=== PATIENT | female | born 1970 | race Caucasian/White ===

== ENCOUNTER 2020-07-29 15:01 | Emergency (ER) | payer MEDICAID ==
[~2020-07-29] VITALS: Ht 167.6 cm; Wt 70.3 kg
[2020-07-29 15:09] VITALS: BP_SYST 144
--- NOTE | 2020-07-29 15:15 | NUR ---
Patient to ER bed 7 to gown for evaluation. Side rails up. Report given to Nikki AGRAWAL.
--- NOTE | 2020-07-29 15:17 | NUR ---
Patient arrived in the ED c/o right ankle pain after slipping on a wet floor 4 days ago. Patient denied any chest pain or shortness of breath. Denied any fevers, chills, nausea, or vomiting. Patient is alert and oriented x4, respirations even and unlabored, speaking in full sentences, ambulating with a steady gait. VSS, pain level 4/10. Informed of approximate wait time. Instructed to notify ED staff for any changes in condition or worsening of symptoms. Patient verbalized understanding.
--- NOTE | 2020-07-29 15:20 | NUR ---
SHANITA Edwards DEBONER at bedside examining patient.
[2020-07-29] MEDS ORDERED: IBUPROFEN 600 MG TABLET PO ONE (15:30)
--- NOTE | 2020-07-29 15:38 | NUR ---
Patient medicated with 600 mg ibuprofen PO for 4/10 R ankle pain. Patient tolerated well. Will continue to monitor.
--- NOTE | 2020-07-29 15:44 | NUR ---
X-ray tech at bedside as ordered by Dr. Ingram. Patient tolerated the procedure well.
[2020-07-29 16:14] VITALS: BP_SYST 144
--- NOTE | 2020-07-29 16:15 | NUR ---
Patient given written and verbal discharge instructions and verbalizes understanding. ER MD discussed with patient the results and treatment provided. Patient in stable condition. ID arm band removed. Rx of Motrin given. Patient educated on pain management and to follow up with PMD. Pain Scale 3/10. Opportunity for questions provided and answered. Medication side effect fact sheet provided.
== END 2020-07-29 16:15 | disposition home or self-care (01) ==
LOC: SED 15:01
DX: S93.491A Sprain of other ligament of right ankle, initial encounter (principal); S83.8X1A Sprain of other specified parts of right knee, initial encounter; R03.0 Elevated blood-pressure reading, without diagnosis of hypertension; F17.200 Nicotine dependence, unspecified, uncomplicated; Z71.6 Tobacco abuse counseling; Z85.9 Personal history of malignant neoplasm, unspecified; Z90.710 Acquired absence of both cervix and uterus; W01.198A Fall on same level from slipping, tripping and stumbling with subsequent striking against other object, initial encounter; Y93.89 Activity, other specified; Y92.89 Other specified places as the place of occurrence of the external cause; Y99.8 Other external cause status
CPT/HCPCS: 73564; 99284

== ENCOUNTER 2021-08-28 22:26 | Emergency (ER) | payer MEDICAID ==
[~2021-08-28] VITALS: Ht 167.6 cm; Wt 72.6 kg
[2021-08-28 22:44] VITALS: BP_SYST 136
--- NOTE | 2021-08-28 22:44 | NUR ---
Patient to ER bed 4 . Side rails up. Patient' family at bedside.
--- NOTE | 2021-08-28 22:49 | NUR ---
Patient BIB by family from home. C/O Laceration x today. Patient reported, cut herself by accident while was cooking. A/O,X4, left finger pain, pain rate 6/10, intermittent, ~4 cm laceration, bleeding control.
[2021-08-28] MEDS ORDERED: LIDOCAINE 1%, 20 ML MDV 20 ML ONE (23:53)
[2021-08-29] MEDS ORDERED: LIDOCAINE 1% 10 MG/ML, 20 ML MDV INJ ONE
--- NOTE | 2021-08-29 00:22 | NUR ---
Patient has a 4 cm laceration to left finger . Dr. Patterson applied sutures using sterile technique. Edges well approximated. Site cleansed with NSS and betadine. Bacitricin applied to site. No bleeding noted. Pt tolerated well.
--- NOTE | 2021-08-29 00:23 | NUR ---
Dr. Patterson bedside for procedure, well tolerated
[2021-08-29] MEDS ORDERED: BACI15OI13 TP (00:39)
[2021-08-29] MEDS ORDERED: BACITRACIN ZINC 15 GM TOPICAL OINTMENT TP ONE (00:45)
--- NOTE | 2021-08-29 00:57 | NUR ---
Patient given written and verbal discharge instructions and verbalizes understanding. ER MD discussed with patient the results and treatment provided. Patient in stable condition. ID arm band removed. Rx of Bacitracin given. Patient educated on pain management and to follow up with PMD. Pain Scale 2/10. Opportunity for questions provided and answered. Medication side effect fact sheet provided.
--- NOTE | 2021-08-29 01:15 | NUR ---
Found a cell phone on bed 2, given to front desk receptionist/security.
== END 2021-08-29 01:15 | disposition home or self-care (01) ==
LOC: SED 22:26
DX: S61.215A Laceration without foreign body of left ring finger without damage to nail, initial encounter (principal); W26.0XXA Contact with knife, initial encounter; Y93.89 Activity, other specified; Y92.89 Other specified places as the place of occurrence of the external cause; Y99.8 Other external cause status
CPT/HCPCS: 12002; 99282; J2001